=== PATIENT | female | born 1950 | race Caucasian/White ===

== ENCOUNTER 2023-05-25 23:37 | Emergency (ER) | payer MEDICARE ==
[~2023-05-25] VITALS: Ht 157.5 cm; Wt 90.5 kg
[2023-05-25 23:58] VITALS: BP 127/55; PULSE 65; RESP 17; O2SAT 97
[2023-05-26 01:45] VITALS: TEMP 97.7
[2023-05-26] MEDS ORDERED: ACETAMINOPHEN 325MG TABLET PO ONE (01:45)
[2023-05-26] MEDS ORDERED: TETANUS, DIPHTHERIA, PERTUSSIS VAC/PF 0.5ML (>10YR OLD) IM ONE ×2 (01:45→03:45)
[2023-05-26] MEDS ORDERED: BACITRACIN ZINC OINT UDPKT TOP ONE (01:45)
[2023-05-26] MEDS ORDERED: LIDOCAINE HCL/PF 1% 10 MG/ML 5ML VIAL INFIL ONE ×2 (01:45→02:45)
== END 2023-05-26 04:01 | disposition home or self-care (01) ==
LOC: ER 23:37
DX: S81.812A Laceration without foreign body, left lower leg, initial encounter (principal); X58.XXXA Exposure to other specified factors, initial encounter; Y93.89 Activity, other specified; Y92.89 Other specified places as the place of occurrence of the external cause; Y99.8 Other external cause status
CPT/HCPCS: 99284; 12004; 73590; 73610; 90715; 90471; J3490

== ENCOUNTER 2023-05-28 07:04 | Emergency (ER) | payer MEDICARE ==
[~2023-05-28] VITALS: Ht 160 cm; Wt 100.0 kg
[2023-05-28 07:28] VITALS: BP 161/68; O2SAT 96
[2023-05-28] MEDS ORDERED: CEPHALEXIN 250MG CAPSULE PO ONE (08:30)
[2023-05-28] MEDS ORDERED: ACETAMINOPHEN 325MG TABLET PO ONE (08:30)
[2023-05-28] MEDS ORDERED: CEPH500C2 MT (08:47)
[2023-05-28 09:11] VITALS: PULSE 77; RESP 18; TEMP 98.1
== END 2023-05-28 09:12 | disposition home or self-care (01) ==
LOC: ER 08:10
DX: L03.116 Cellulitis of left lower limb (principal); J45.909 Unspecified asthma, uncomplicated; E11.9 Type 2 diabetes mellitus without complications; Z91.013 Allergy to seafood; Z98.890 Other specified postprocedural states
CPT/HCPCS: 99283

== ENCOUNTER 2023-05-31 07:36 | Emergency (ER) | payer MEDICARE ==
[~2023-05-31] VITALS: Ht 157.5 cm; Wt 90.7 kg
[~2023-05-31 07:36] MED LIST: CEPH500C2 MT
[2023-05-31 08:04] VITALS: BP 169/82; O2SAT 99
[2023-05-31] MEDS ORDERED: SULF1TAB48 MT (08:12)
[2023-05-31 08:21] VITALS: PULSE 68; RESP 16; TEMP 98.2
== END 2023-05-31 08:22 | disposition home or self-care (01) ==
LOC: ER 07:36
DX: L03.90 Cellulitis, unspecified (principal); J45.909 Unspecified asthma, uncomplicated; E11.9 Type 2 diabetes mellitus without complications; Z98.890 Other specified postprocedural states; Z91.013 Allergy to seafood
CPT/HCPCS: 99283

== ENCOUNTER 2023-06-02 08:10 | Emergency (ER) | payer MEDICARE ==
[~2023-06-02] VITALS: Ht 154.9 cm; Wt 82.0 kg
[~2023-06-02 08:10] MED LIST changes: +SULF1TAB48 MT
[2023-06-02 08:20] VITALS: BP 168/52; PULSE 80; RESP 20; TEMP 97.7; O2SAT 98
== END 2023-06-02 11:29 | disposition home or self-care (01) ==
LOC: ER 08:10
DX: S81.812D Laceration without foreign body, left lower leg, subsequent encounter (principal); E11.9 Type 2 diabetes mellitus without complications; J45.909 Unspecified asthma, uncomplicated; Z48.00 Encounter for change or removal of nonsurgical wound dressing; X58.XXXD Exposure to other specified factors, subsequent encounter
CPT/HCPCS: 99281

== ENCOUNTER 2023-06-08 07:08 | Emergency (ER) | payer MEDICARE ==
[~2023-06-08] VITALS: Ht 165.1 cm; Wt 69.0 kg
[2023-06-08 07:21] VITALS: O2SAT 100
[2023-06-08 08:02] VITALS: BP 132/81
[2023-06-08 09:33] VITALS: PULSE 76; RESP 20; TEMP 98.1
[2023-06-08 15:58] LABS: HEPATITIS B SURFACE ANTIGEN NEGATIVE (Negative); HEPATITIS C AB NON REACTIVE (Neg) (Negative)
== END 2023-06-08 09:34 | disposition home or self-care (01) ==
LOC: ER 07:08
DX: S81.812D Laceration without foreign body, left lower leg, subsequent encounter (principal); J45.909 Unspecified asthma, uncomplicated; E11.9 Type 2 diabetes mellitus without complications; Z48.02 Encounter for removal of sutures; X58.XXXD Exposure to other specified factors, subsequent encounter
CPT/HCPCS: 36415; 86705; 87340; 99283